=== PATIENT | female | born 1955 | race Caucasian/White ===

== ENCOUNTER → 2016-12-26 | Outpatient (CLI) | payer BC ==
[~2016-12-26] MED LIST: ASPI-435 PO; HYDR25TA5 PO; MULT1TAB19 PO
--- NOTE | 2016-12-26 15:33 | MAMMOGRAPHY REPORT ---
BILATERAL DIGITAL SCREENING MAMMOGRAM TOMOSYNTHESIS WITH CAD: 12/26/2016 CLINICAL HISTORY: Routine screening. Patient has no complaints. TECHNIQUE: Breast tomosynthesis in addition to standard 2D mammography was performed. Current study was also evaluated with a Computer Aided Detection (CAD) system. COMPARISON: Comparison is made to exams dated: 01/07/2016 mammogram, 12/25/2015 mammogram, 12/21/2014 m ammogram, 12/14/2012 mammogram, 12/19/2013 mammogram, and 12/05/2011 mammogram - [facility] enter. BREAST COMPOSITION: There are scattered areas of fibroglandular density in both breasts. FINDINGS: No suspicious masses, calcifications, or areas of architectural distortion are noted in ei ther breast. There has been no significant interval change compared to prior exams. A biopsy marker clip is again noted in the right upper inner quadrant. Benign-appearing left breast calcifications a re not significantly changed. Nodular asymmetry in the right retroareolar breast middle depth on the cc view is similar to prior exams including the 2008 exam and compatible with normal fibroglandular tissue. IMPRESSION: ACR BI-RADS CATEGORY 2: BENIGN There is no mammographic evidence of malignancy. A 1 year screening mammogram is recommended. The pa tient will receive written notification of the results. Approximately 10% of breast cancers are not detected with mammography. A negative mammographic report should not delay biopsy if a clinically suggestive mass is present. Marta Chen M.D. /:12/26/2016 15:18:18 Civil Engineering Draftsperson: Janay Duran RT(Ahsan)(M)(BD), [facility] letter sent: Normal 1/2 BI-RADS Code: ACR BI-RADS Category 2: Benign
== END | disposition home or self-care (01) ==
LOC: C.MAMM 09:15
PROVIDERS: ATTEND Obstetrics & Gynecology
DX: Z12.31 Encounter for screening mammogram for malignant neoplasm of breast (principal)

== ENCOUNTER → 2017-06-09 | Outpatient (CLI) | payer OTHER | END | disposition home or self-care (01) | LOC: C.PAPS 12:20 | PROVIDERS: ATTEND Obstetrics & Gynecology | DX: Z01.419 Encounter for gynecological examination (general) (routine) without abnormal findings (principal); Z78.0 Asymptomatic menopausal state ==

== ENCOUNTER → 2017-06-29 | Outpatient (CLI) | payer OTHER ==
[~2017-06-29] MED LIST changes: +GADAVIST IV PRN
--- NOTE | 2017-06-29 09:08 | DIAGNOSTIC IMAGING REPORT ---
MRI OF THE BRAIN WITHOUT AND WITH IV CONTRAST CLINICAL HISTORY: MIGRAINE VARIANT,CEREBRAL MENINGIOMA COMPARISON STUDY: 12/09/2013 TECHNIQUE: MRI of the brain was performed from the vertex to the skull base utilizing various T1 and T2 weighted sequences. Following the IV administration of 10.5 mL of Gadavist contrast, additional enhanced images were obtained. FINDINGS: Sagittal T1, axial diffusion, proton density and T2 weighted axial, coronal FLAIR, and pre and post axial T1-weighted images were acquired. These were supplemented with post gadolinium coronal T1 weighted images. No intra or extra-axial mass lesions are visualized. Axial diffusion-weighted images reveal no evidence of acute or subacute infarction. There is no evidence of ventricular dilatation. Proton density T2-weighted and FLAIR images reveal a stable focus of increased FLAIR signal within the left frontal lobe, likely representing postsurgical gliosis. There are postsurgical changes of a left frontal craniotomy. There is also a stable 4 mm focus of increased FLAIR signal within the right posterior frontal white matter. There are no abnormal flow voids. There is stable mild asymmetric right medial temporal lobe atrophy There is stable mild dural enhancement subjacent to the left craniotomy site. This is felt to represent postsurgical change. There are no findings to indicate recurrent neoplasm. IMPRESSION: 1. No significant change from the preceding examination. 2. Postoperative changes involving the left frontal region. No evidence of recurrent neoplasm 3. 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 No evidence of acute or subacute infarction Electronically signed by: Tyler Rivera M.D. 06/29/2017 9:07 AM Dictated Date/Time: 06/29/2017 9:02 AM
== END | disposition home or self-care (01) ==
LOC: C.MRIBC 08:01
PROVIDERS: ATTEND Psychiatry & Neurology Neurology
DX: G43.809 Other migraine, not intractable, without status migrainosus (principal); D32.0 Benign neoplasm of cerebral meninges